=== PATIENT | male | born 2000 | race African-American/Black ===

== ENCOUNTER 2024-08-11 04:19 | Emergency (ER) | payer MEDICAID ==
[~2024-08-11] VITALS: Ht 172.7 cm; Wt 98.4 kg
[2024-08-11 04:22] VITALS: PULSE 65; O2SAT 99
[2024-08-11 04:30] VITALS: BP 130/77; TEMP 36.5; O2SAT 99
[2024-08-11 05:10] VITALS: RESP 16
[2024-08-11] MEDS: IBUPROFEN 400MG TABLET PO ONE (05:10)
[2024-08-11] MEDS: LIDOCAINE 5% PATCH TOP SCH (05:10)
[2024-08-11] MEDS ORDERED: LIDO-53 TP (05:45)
== END 2024-08-11 05:59 | disposition home or self-care (01) ==
LOC: ER 04:19
DX: G62.9 Polyneuropathy, unspecified (principal); Z98.890 Other specified postprocedural states
CPT/HCPCS: 73030; 99283

== ENCOUNTER 2024-09-29 20:49 | Emergency (ER) | payer MEDICAID, OTHER ==
[~2024-09-29] VITALS: Ht 172.7 cm; Wt 95.0 kg
[~2024-09-29 20:49] MED LIST: LIDO-53 TP
[2024-09-29 21:05] VITALS: O2SAT 100
[2024-09-29 21:07] VITALS: TEMP 37.2
[2024-09-29] MEDS: IBUPROFEN 600MG TABLET PO ONE (21:55)
[2024-09-29] MEDS ORDERED: IBUP-2029 MT (22:37)
[2024-09-29 22:58] VITALS: BP 102/66; PULSE 75; RESP 13; O2SAT 98
== END 2024-09-29 23:01 | disposition home or self-care (01) ==
LOC: ER 20:49
DX: S80.02XA Contusion of left knee, initial encounter (principal); X58.XXXA Exposure to other specified factors, initial encounter; Y93.89 Activity, other specified; Y92.89 Other specified places as the place of occurrence of the external cause; Y99.8 Other external cause status
CPT/HCPCS: 73562; 99283; Z7610